=== PATIENT | female | born 1965 | race Caucasian/White ===

== ENCOUNTER 2021-02-22 16:04 | Emergency (ER) | payer OTHER ==
[~2021-02-22] VITALS: Ht 160 cm; Wt 99.8 kg
[2021-02-22 16:08] VITALS: BP_SYST 159
--- NOTE | 2021-02-22 16:15 | NUR ---
Pt came to ER for med clearance after having worsening schizophrenia symptoms. Pt currently resting in [facility] comfortably no distress noted at this time
--- NOTE | 2021-02-22 16:15 | NUR ---
Patient to ER bed 1 to gown for evaluation. Side rails up. Report given to JULISA SWENSON.
--- NOTE | 2021-02-22 16:15 | NUR ---
Patient to ER bed 01 to gown for evaluation. Side rails up.
--- NOTE | 2021-02-22 16:25 | NUR ---
ER at bedside examining patient.
[2021-02-22] MEDS ORDERED: cloNIDine HCL 0.1 MG TABLET PO ONE (16:30)
[2021-02-22 16:44] LABS: BASOPHILS # (AUTO) 0.1 K/uL (0.0-0.2); BASOPHILS % (AUTO) 0.6 % (0.0-2.0); EOSINOPHILS # (AUTO) 0.1 K/uL (0.0-0.4); HEMATOCRIT 41.2 % (36-48); HEMOGLOBIN 14.2 g/dL (12.0-16.0); LYMPHOCYTES # (AUTO) 2.2 K/uL (1.0-5.5); LYMPHOCYTES % (AUTO) 24.2 % (20.5-51.5); MEAN CORPUSCULAR HEMOGLOBIN 31 pg (27-31); MEAN CORPUSCULAR HGB CONC 35 % (32-36); MEAN CORPUSCULAR VOLUME 90 fL (79.0-98.0); MONOCYTES # (AUTO) 0.6 K/uL (0.0-1.0); MONOCYTES % (AUTO) 6.9 % (1.7-9.3); NEUTROPHILS # (AUTO) 6.1 K/uL (1.8-7.7); NEUTROPHILS % (AUTO) 67.3 % (40.0-70.0); PLATELET COUNT (AUTO) 271 K/uL (130-430); RED BLOOD CELL COUNT(AUTO) 4.58 MIL/uL (4.2-6.2)
[2021-02-22 17:00] LABS: ANION GAP 8 (5-15); CALCIUM 9.2 mg/dL (8.4-11.0); CHLORIDE 93 mmol/L (98-107); CREATININE 1.51 mg/dL (0.55-1.30); POTASSIUM 4.4 mmol/L (3.5-5.1); SODIUM SERUM 128 mmol/L (136-145); UREA NITROGEN, BLOOD 23 mg/dL (8-21)
[2021-02-22 17:06] LABS: ALANINE AMINOTRANSFERASE 26 U/L (12-78); ASPARTATE AMINOTRANSFERASE 13 U/L (10-37); TOTAL BILIRUBIN 0.7 mg/dL (0.0-1.0)
[2021-02-22 17:08] LABS: GFR AFRICAN AMERICAN 46 mL/min (>90)
[2021-02-22 17:09] LABS: GLUCOSE 590 mg/dL (70-99)
[2021-02-22 17:10] LABS: ACETAMINOPHEN < 1 ug/mL (1-30); ALCOHOL, BLOOD < 3 mg/dL (<10)
[2021-02-22 17:43] LABS: BARBITURATE, URINE NEGATIVE (NEG <=200); BENZODIAZEPINE, URINE NEGATIVE (NEG <=150); CANNABINOID, URINE NEGATIVE (NEG <=50); COCAINE, URINE NEGATIVE (NEG <=150); METHAMPHETAMINES SCREEN,URINE NEGATIVE (NEG <=500); OPIATE, URINE NEGATIVE (NEG <=100); PHENCYCLIDINE SCREEN,URINE NEGATIVE (NEG <=25); UR TRICYCLIC ANTIDEPRESSANTS NEGATIVE (NEG <=300); URINE AMPHETAMINE NEGATIVE (NEG <=500); URINE METHADONE NEGATIVE (NEG <=200); URINE OXYCODONE SCREEN NEGATIVE (NEG <=100); URINE PROPOXYPHENE SCREEN NEGATIVE (NEG <=300)
--- NOTE | 2021-02-22 17:51 | NUR ---
Pt moved to bed 04
[2021-02-22] MEDS ORDERED: INSULIN REGULAR, HUMAN 10 UNITS/0.1 ML INJ IVP ONE (18:00)
[2021-02-22] MEDS ORDERED: NACL 0.9% 1,000 ML IV ONE (18:00)
--- NOTE | 2021-02-22 19:06 | NUR ---
Pt resting in [facility] at this time no distress noted, on monitor
--- NOTE | 2021-02-22 21:40 | NUR ---
REPORT TO STAFF AT [facility], IN AGREEMENT WITH TRANSPORT. PT LAUGHING AND TALKING IN ROOM BY HERSELF
[2021-02-22 22:50] VITALS: BP_SYST 157
--- NOTE | 2021-02-22 22:52 | NUR ---
Patient given written and verbal discharge instructions and verbalizes understanding. ER MD discussed with patient the results and treatment provided. Patient in stable Patient educated on pain management and to follow up with PMD. Pain Scale Opportunity for questions provided and answered. Medication side effect fact sheet provided. TO ART KILLIAN [facility] [employer]
== END 2021-02-22 22:50 ==
LOC: SED 16:04
DX: E11.65 Type 2 diabetes mellitus with hyperglycemia (principal); J44.9 Chronic obstructive pulmonary disease, unspecified; I10 Essential (primary) hypertension; I51.9 Heart disease, unspecified; G20 Parkinson's disease; Z88.6 Allergy status to analgesic agent
CPT/HCPCS: 36415; 71045; 80053; 80307; 82009; 82550; 82962; 84484; 85025; 87081; 87426; 93005; 96361; 96374; 99285; G0480; G0481; G0482; J1815; J7030

== ENCOUNTER 2021-02-28 16:58 | Emergency (ER) | payer OTHER ==
[~2021-02-28] VITALS: Ht 165.1 cm; Wt 115.2 kg
[2021-02-28 17:01] VITALS: BP_SYST 136
[2021-02-28 18:49] VITALS: BP_SYST 136
== END 2021-02-28 18:49 | disposition home or self-care (01) ==
LOC: SED 16:58
DX: R06.02 Shortness of breath (principal); I10 Essential (primary) hypertension; E11.9 Type 2 diabetes mellitus without complications; J44.9 Chronic obstructive pulmonary disease, unspecified; I51.9 Heart disease, unspecified; G20 Parkinson's disease; Z88.6 Allergy status to analgesic agent
CPT/HCPCS: 93005; 99283